=== PATIENT | male | born 1975 | race Hispanic/Latino ===

== ENCOUNTER 2022-08-10 11:39 | Emergency (ER) | payer OTHER, SELFPAY ==
[2022-08-10 12:10] VITALS: BP 144/98; PULSE 111; RESP 16; TEMP 37.2; O2SAT 99
--- NOTE | 2022-08-10 12:28 | ED.URI ---
HPI - URI/Sore Throat General Chief Complaint: Upper Respiratory Infection Stated Complaint: cough, runny nose, fever Time Seen by Provider: 08/10/22 12:15 Source: patient Mode of arrival: ambulatory Limitations: no limitations History of Present Illness HPI Narrative: Adán is a 47-year-old male patient presenting to the clinic today with complaints of cough, runny nose, and fever, body aches, and chills times 3 days. He reports that he has had exposure to some friends a work the tested positive for influenza MD elicited complaint: fever, cough, rhinorrhea and nasal congestion Related Data Allergies Allergy/AdvReac Type Severity Reaction Status Date / Time No Known Allergies Allergy Verified 05/10/16 01:48 Review of Systems Review of Systems: Pertinent positives per HPI. Patient denies any rash, headache, visual changes, dizziness, shortness of breath, chest pain, palpitations, nausea, vomiting, diarrhea, constipation, abdominal pain, or any urinary issues. [facility] Family History Family History Mother Family history of diabetes mellitus in first degree relative Social History Social History Alcohol intake: current Comments At the time of my signature, I reviewed and agree with the nursing past medical, surgical, social, and family history. There is no relevant family history pertinent to the patient complaint. Exam Narrative: General: Well-developed, well nourished, in no apparent distress Head: Normocephalic, atraumatic Eyes: Pupils equally round and reactive to light bilaterally, EOM intact, sclera and conjunctive clear, no discharge, lids normal Ears: TMs intact and clear, ear canals clear, no drainage, grossly hearing normal. Nose: Nares patent, clear nasal discharge, no inflammation, no sinus tenderness. Mouth: Oral pharynx without lesions or masses, good dentition, MMM. Oropharynx red, postnasal drip Neck: Supple, trachea midline, no enlargement of anterior or posterior cervical nodes, no thyroid masses or goiter palpable. Cardio: Regular rate and rhythm, s1 and s2 normal, no murmur appreciated. Resp: Clear to auscultation bilaterally, no rhonchi, rales, wheezing or rubs Course Course Emergency Course: Portions of this record may have been created with voice recognition software. Level of Care: Express Care Visit Vital Signs Vital signs: Vital Signs Temperature 37.2 C 08/10/22 12:10 Pulse Rate 111 H 08/10/22 12:10 Respiratory Rate 16 08/10/22 12:10 Blood Pressure 144/98 H 08/10/22 12:10 Pulse Oximetry 99 08/10/22 12:10 Temperature 37.2 C 08/10/22 12:10 Pulse Rate 111 H 08/10/22 12:10 Respiratory Rate 16 08/10/22 12:10 Blood Pressure 144/98 H 08/10/22 12:10 Pulse Oximetry 99 08/10/22 12:10 Vital signs reviewed MDM - URI/Sore Throat MDM Narrative Medical decision making narrative: At the time of visit patient is resting comfortably on the exam table. I suspect patient has influenza A as he tested positive in the clinic today. Supportive measures were discussed with the patient he voiced understanding of discharge instructions. Prescription for Tamiflu was sent to the pharmacy. Differential Diagnosis Differential diagnosis: Likely upper respiratory infection, otitis media, sinusitis, viral infection, bronchitis, influenza, pharyngitis and other (COVID) Lab Data Labs: Influenza A Screen Positive Reference Range: Negative Influenza B Screen Negative Reference Range: Negative Discharge Plan Discharge Clinical Impression: Influenza A Patient Disposition: Home, Self-Care Condition: Stable Instructions: Antibiotic Form, Influenza (ED) Additional Instructions: Take prescription medications only
== END 2022-08-10 12:37 | disposition home or self-care (01) ==
PROVIDERS: Emergency Provider Nurse Practitioner Family; PCP Emergency Medicine
DX: J10.1 Influenza due to other identified influenza virus with other respiratory manifestations (principal)
CPT/HCPCS: 87804; 99203; G0463

== ENCOUNTER 2024-02-05 10:08 | Day surgery (SDC) | payer OTHER, SELFPAY ==
[2024-01-20 13:51] VITALS: BMI 28.8
[2024-01-22 11:05] VITALS: BMI 29.0
--- NOTE | 2024-02-04 14:58 | WPDANESEPPF ---
Anes - Initial Pre Proc Eval Procedure: Operation Date: 02/05/24 12:30 Proposed Procedures p Diagnostic Colonoscopy - Delroy Wagoner MD Date/Time: 02/04/24 14:58 Surgeon: Delroy Wagoner MD Pre Op Diagnosis: Change in Bowel Habits Patient Data Age: 48 Gender: M Height: 1.85 m Weight: 100 kg Allergies Allergy/AdvReac Type Severity Reaction Status Date / Time No Known Allergies Allergy Verified 02/05/24 11:24 Home Medications Medication Instructions Recorded Confirmed Type atorvastatin 40 mg tablet 40 mg PO DIRECTED 01/22/24 02/05/24 History losartan 50 mg tablet 50 mg PO DIRECTED 01/22/24 02/05/24 History Patient hx anesthesia problems: none Family hx anesthesia problems: none Results Review: All pre-operative results and documents have been reviewed as part of the pre-operative evaluation. [facility] Past Medical History Medical History (Updated 02/05/24 @ 12:25 by Delroy Wagoner MD) Hyperlipidemia Hypertension Family History Family History Mother Family history of diabetes mellitus in first degree relative Social History Social History Smoking status: Never smoker Alcohol intake: current Drinks per week: 6 Substance use type: does not use Living arrangements: with family Anes - Eval Final PreProcedure Day of Procedure 02/04/24 14:58 Patient weight: overweight Heart: regular rate and rhythm Lungs: clear to auscultation Airway: Mallampati scale class II Neurological: alert and oriented Last oral intake: >/= 8 hours ASA classification: II Emergent: no Anesthetic plan: proceed Anesthesia type and monitoring: general GIVS and standard monitoring Results Review: All pre-operative results and documents have been reviewed as part of the pre-operative evaluation. Informed Consent: The patient's anesthetic plan and its attendant risks and benefits were discussed with the patient/family/POA. Questions were solicited and answers provided to the satisfaction of the patient/family/POA.
[2024-02-05 11:28] VITALS: BP 124/92; PULSE 86; RESP 15; TEMP 36.2; O2SAT 98
[2024-02-05] MEDS: LACTATED RINGERS 1,000 ML 150 ML IV CONT (11:51)
--- NOTE | 2024-02-05 12:23 | PM.HPGS ---
History of Present Illness History of Present Illness Consent: Risks, benefits, and alternatives have been discussed and questions answered. Patient agrees to proceed with procedure. Chief complaint: Change in Bowel Habits Narrative: Adán Simmons is a 48 year old male presents for screening colonoscopy. Patient reports that typically he would have 3 bowel today. Over the last 2 months he now has bowel movement every other day. Abdominal discomfort. He has no bleeding or weight loss. Family history noncontributory. Patient referred for screening colonoscopy because of his age and recent change in bowel habits. Review of Systems Review of Systems: All systems reviewed & are unremarkable except as noted in HPI and below PMFSH Past Medical History Medical History (Updated 02/05/24 @ 12:25 by Delroy Wagoner MD) Hyperlipidemia Hypertension Family History Family History Mother Family history of diabetes mellitus in first degree relative Social History Social History Smoking status: Never smoker Alcohol intake: current Drinks per week: 6 Substance use type: does not use Living arrangements: with family Meds Home Medications and Allergies Home Medications Medication Instructions Recorded Confirmed Type atorvastatin 40 mg tablet 40 mg PO DIRECTED 01/22/24 02/05/24 History losartan 50 mg tablet 50 mg PO DIRECTED 01/22/24 02/05/24 History Allergies Allergy/AdvReac Type Severity Reaction Status Date / Time No Known Allergies Allergy Verified 02/05/24 11:24 Vital Signs Vital Signs - 24 hr 02/05/24 11:28 Temperature 97.1 F L Pulse Rate 86 Respiratory Rate 15 Blood Pressure 124/92 H Pulse Oximetry 98 Oxygen Delivery Room Air Exam Narrative: Physical exam reveals patient a signs stable. HEENT exam is unremarkable. Patient is anicteric. Lungs are clear to auscultation and percussion. Heart is without murmur or extra sounds. Abdomen bowel sounds are present soft nontender with no organomegaly. Digital external rectal exam is normal. Assessment and Plan Assessment and plan (1) Encounter for screening colonoscopy: Code(s): Z12.11 - Encounter for screening for malignant neoplasm of colon Status: Acute Assessment and Plan: Patient presents today for screening colonoscopy. He has had a recent change in bowel habits. He appears to be at average risk for colon polyps. Further recommendations may be given after endoscopy. Advise adding fiber supplementation at this time.
[2024-02-05 14:03] VITALS: BP 121/95; PULSE 81; RESP 12; O2SAT 95
[2024-02-05 14:13] VITALS: BP 125/99; PULSE 79; RESP 14; O2SAT 94
--- NOTE | 2024-02-05 14:13 | WPDANESPN ---
Anes - Prog Note Post-Op Date/Time: 02/05/24 14:13 Cardiovascular status: normal Respiratory status: normal Airway patency: baseline Mental status: baseline Post-Op hydration status: normal Vital Signs: Last Vital Signs Temp 36.2 C L 02/05/24 11:28 Pulse 81 02/05/24 14:03 Resp 12 02/05/24 14:03 BP 121/95 H 02/05/24 14:03 Pulse Ox 95 02/05/24 14:03 O2 Del Method Room Air 02/05/24 14:03 Pain Score (VAS): 0 I/O: Intake & Output 02/04/24 02/05/24 02/05/24 23:59 07:59 15:59 Intake Total 600 Balance 600 Post-procedural complaints: none Patient Feedback: Patient satisfied with anesthetic care. Other Findings: Patient vital signs back to baseline. Patient denies nausea and vomiting. Patient's pain under control. Patient OK for discharge.
[2024-02-05 14:22] VITALS: BP 121/96; PULSE 73; RESP 16; O2SAT 98
== END 2024-02-05 14:24 | disposition home or self-care (01) ==
PROVIDERS: PCP Emergency Medicine; Visit Provider Internal Medicine Gastroenterology
PROC: 0DJD8ZZ Inspection of Lower Intestinal Tract, Via Natural or Artificial Opening Endoscopic (ICD-10-PCS; CPT 45378; principal; 2024-02-05 12:30)
DX: Z12.11 Encounter for screening for malignant neoplasm of colon (principal); R19.4 Change in bowel habit; K64.8 Other hemorrhoids
CPT/HCPCS: 45378

== ENCOUNTER 2024-03-28 10:01 | Emergency (ER) | payer OTHER, SELFPAY ==
--- NOTE | 2024-03-28 10:09 | ED.GENADULT ---
HPI - General Adult General Chief complaint: Upper Respiratory Infection Stated complaint: cough,sore throat Time Seen by Provider: 03/28/24 10:09 Source: patient Mode of arrival: ambulatory Limitations: no limitations History of Present Illness HPI narrative: 49-year-old male patient presents to [facility] with complaints of a sore throat, fever, congestion and a cough for the past 6 days. Patient states she has he has been taking [id number] DayQuil, NyQuil and TheraFlu. Patient states he thinks he was running a fever for the 1st 3 days but no longer feels that he is running a fever any longer. Denies any chest pain or shortness of breath but states does have a cough and does cough things up at times. Denies any abdominal pain, nausea, vomiting or diarrhea. Related Data Home Medications Medication Instructions Recorded Confirmed atorvastatin 40 mg tablet 40 mg PO DIRECTED 01/22/24 02/05/24 losartan 50 mg tablet 50 mg PO DIRECTED 01/22/24 02/05/24 Allergies Allergy/AdvReac Type Severity Reaction Status Date / Time No Known Allergies Allergy Verified 02/05/24 11:24 Review of Systems Review of Systems: CONSTITUTIONAL: Positive fever, denies chills, or sweats. EYES: Denies visual changes, redness, or discharge. ENT: Positive rhinorrhea, congestion, sore throat, denies otalgia. CARDIOVASCULAR: Denies chest pain, palpitations, or edema. RESPIRATORY: Positive cough, denies dyspnea. GASTROINTESTINAL: Denies abdominal pain, nausea, vomiting, or diarrhea. GENITOURINARY: Denies dysuria or hematuria. SKIN: Denies rash or itching. MUSCULOSKELETAL: Denies back pain, joint pain, or myalgia. NEUROLOGIC: Denies headache, numbness, or weakness. PSYCHIATRIC: Denies anxiety or depression. [facility] Past Medical History Medical History Hyperlipidemia Hypertension Family History Family History Mother Family history of diabetes mellitus in first degree relative Social History Social History Smoking status: Never smoker Alcohol intake: current Drinks per week: 6 Substance use type: does not use Living arrangements: with family Comments At the time of my signature I agree with nursing past medical history, surgical, social, and family history. There is no relevant family history pertinent to the presenting complaint. Exam Narrative: GENERAL: Well-appearing, well-nourished, and in no acute distress. HEAD: Normocephalic, atraumatic. EYES: PERRLA and EOMI. ENT: Nares with erythema edema noted to the right near., clear rhinorrhea, denies epistaxis. Mucous membranes moist. Posterior pharynx with no erythema, tonsillar enlargement, exudates or lesions present. Bilateral TMs are clear no erythema or foreign bodies the canal. NECK: Supple. No lymphadenopathy CHEST: Clear to auscultation. No respiratory distress. Patient able talk in clear complete sentences. HEART: Regular rate and rhythm. No murmur heard. Normal peripheral pulses. ABDOMEN: Soft, nontender, nondistended, normal active bowel sounds. EXTREMITIES: Normal range of motion. No edema. SKIN: Warm, dry, no rash. NEURO: No focal deficits. Alert and oriented x3. Course Course Level of Care: Express Care Visit Vital Signs Vital signs: Vital Signs Temperature 36.9 C 03/28/24 10:11 Pulse Rate 89 03/28/24 10:11 Respiratory Rate 16 03/28/24 10:11 Blood Pressure 135/97 H 03/28/24 10:11 Pulse Oximetry 98 03/28/24 10:11 Oxygen Delivery Room Air 03/28/24 10:11 Temperature 36.9 C 03/28/24 10:11 Pulse Rate 89 03/28/24 10:11 Respiratory Rate 16 03/28/24 10:11 Blood Pressure 135/97 H 03/28/24 10:11 Pulse Oximetry 98 03/28/24 10:11 Oxygen Delivery Room Air 03/28/24 10:11 Vital signs reviewed. The patient has been informed that they may kaplan
[2024-03-28 10:11] VITALS: BP 135/97; PULSE 89; RESP 16; TEMP 36.9; O2SAT 98
[2024-03-28 10:39] LABS: EDSTREPNEGPOS1 Presumptive Negative
== END 2024-03-28 10:41 | disposition home or self-care (01) ==
PROVIDERS: Emergency Provider Nurse Practitioner Family; PCP Emergency Medicine
DX: J06.9 Acute upper respiratory infection, unspecified (principal); R05.9 Cough, unspecified; Z20.822 Contact with and (suspected) exposure to COVID-19; E78.5 Hyperlipidemia, unspecified; I10 Essential (primary) hypertension
CPT/HCPCS: 87081; 87426; 87880; 99213; G0463